=== PATIENT | female | born 1985 | race Caucasian/White ===

== ENCOUNTER → 2024-09-20 09:13 | Outpatient (REF) | payer BC, SELFPAY | LOC: WDC 09:13 | PROVIDERS: ATTENDING PHYSICIAN Nurse Practitioner Family | DX: N63.10 Unspecified lump in the right breast, unspecified quadrant (principal); N63.41 Unspecified lump in right breast, subareolar | CPT/HCPCS: 76642; 77062; 77066 ==

== ENCOUNTER → 2024-09-28 11:53 | Outpatient (REF) | payer BC, SELFPAY ==
--- NOTE | 2024-09-28 15:41 | OID.BR.INTR ---
[facility]igator - Initial
- -
Date of Contact: 09/28/24
Met with patient. Patient given written information on navigator services available at [facility]. Will follow up as needed per protocol.
== END ==
LOC: WDC 11:53
PROVIDERS: ATTENDING PHYSICIAN Nurse Practitioner Family
DX: N63.10 Unspecified lump in the right breast, unspecified quadrant (principal); N63.41 Unspecified lump in right breast, subareolar
CPT/HCPCS: 88305; 19083; A4648